=== PATIENT | male | born 1955 | race Caucasian/White ===

== ENCOUNTER 2016-11-30 08:00 | Emergency (ER) | payer OTHER ==
[~2016-11-30] VITALS: Ht 175.3 cm; Wt 103.6 kg
[~2016-11-30 08:00] MED LIST: ASPIR-LOW81 MG PO; ATORVASTATIN CA80 MG PO; CLOPIDOGREL75 MG PO; LISINOPRIL2.5 MG PO; LOPRESSOR25 MG PO; METFORMIN HCL500 MG PO; NICOTINE PATCH1 EAC2 TD
[2016-11-30] MEDS ORDERED: MOTRIN600 MG PO (08:35)
[2016-11-30 08:46] VITALS: BP 168/92
== END 2016-11-30 08:47 | disposition home or self-care (01) ==
LOC: EME 08:00
DX: S16.1XXA Strain of muscle, fascia and tendon at neck level, initial encounter (principal); E11.9 Type 2 diabetes mellitus without complications; V49.40XA Driver injured in collision with unspecified motor vehicles in traffic accident, initial encounter; Z95.5 Presence of coronary angioplasty implant and graft; Z87.891 Personal history of nicotine dependence
CPT/HCPCS: 99281; 99285